=== PATIENT | female | born 1940 ===

== ENCOUNTER 2018-03-10 07:35 | Day surgery (SDC) | payer MEDICARE, BC ==
[~2018-03-10 07:35] MED LIST: Acetaminophen TAB* 325 MG PO PRN; Buffered Lidocaine 0.9% SYRIN* 5 ML/SYR SYRINGE INTRADERM ONE; Cyclopentolate 1% OPTH.SOL* 2 ML BTL ONE; Ketorolac 0.5% OPHTH (NF) 0.5 % 5 ML BTL ONE; Lidocaine 1% MPF* 2 ML VIAL ONE; Midazolam* 1 MG/ML 5 ML VIAL (5 MG) ONE; Neomycin/Polymy/Dex OPHTH.OIN* 3.5 GM ONE; Phenylephrine 2.5% OPTH.SOL* 2 ML BTL ONE; Povidone Iodine 5% OPTH* 30 ML BTL ONE; Tetracaine 0.5% OPTH.SOL 4 ML* 1 DROP BTL ONE; Tropicamide 1% OPTH.SOL* BTL ONE; acetaZOLAMIDE TAB* 250 MG ONE; fentaNYL* 50 MCG/ML 2 ML VIAL (100 MCG VIAL) ONE
[2018-03-10 08:56] VITALS: BP 140/61
--- NOTE | 2018-03-11 06:15 | OP ---
DATE OF OPERATION: 03/10/18 - [facility] DATE OF : 36 SURGEON: Alessandro Alves MD ANESTHESIA: Monitored anesthesia care. PRE-OP DIAGNOSIS: Cataract, right eye with astigmatism. POST-OP DIAGNOSIS: Cataract, right eye with astigmatism. OPERATIVE PROCEDURE: Extracapsular cataract extraction of the right eye with intraocular lens implant. IMPLANTS: SN6AT6 17.5 diopter lens at 83 degrees. COMPLICATIONS: None. DESCRIPTION OF PROCEDURE: The patient was given phenylephrine 2.5% and cyclopentolate 1% eye drops to the operative eye in the preoperative area. Corneal markings were placed at 0, 180, and 270 degrees with the patient in an upright position to facilitate toric lens placement. The patient was brought to the operating room where a time-out was taken to identify the correct patient , site and side of surgery. The patient's right eye was prepped and draped in the usual sterile fashion with 5% Betadine. A second time-out was taken to verify the correct patient, site and side of surgery and correct lens selection. A lid speculum was placed to the right eye. The 83-degree [place] was then marked on the corneal surface using a degree marker. A 1-mm paracentesis blade was used to make a clear corneal incision in the superotemporal position. Preservative-free 1% lidocaine was injected into the anterior chamber. DisCoVisc was then injected into the anterior chamber. A 2.75 mm keratome blade was used to make a triplanar incision at the infero- temporal position. A cystotome initiated a capsulorrhexis which was completed with Utrata forceps in a continuous and curvilinear manner. Hydrodissection of the lens was performed with BSS on a cannula. The lens could be spun in a capsular bag. The phacoemulsification handpiece was used with a divide-and- conquer technique to remove the nucleus in its entirety with 13.66 CDE. The I/ A handpiece then removed the residual cortical lens material. DisCoVisc was injected to inflate the capsular bag. The planned SN6AT6 17.5 diopter lens was injected into the capsular bag and positioned to the 83-degree [place]. The residual DisCoVisc was removed from the eye with the I/A handpiece. The lens was again confirmed to be at the 83-degree [place]. The corneal incisions were hydrated and no leaks occurred at physiologic pressure around 20 mmHg per palpation. The lid speculum was removed and drapes removed. Maxitrol ointment was placed to the surface of the operative eye. An adhesive patch and shield was then placed on the operative eye. The patient was taken to the postoperative area in stable condition. [id number]/[facility] #: [id number] MTDD
== END 2018-03-10 09:01 | disposition home or self-care (01) ==
LOC: OREAST 07:35
PROVIDERS: ATTEND Student in an Organized Health Care Education/Training Program
DX: H25.11 Age-related nuclear cataract, right eye (principal); H43.812 Vitreous degeneration, left eye; I10 Essential (primary) hypertension; E78.2 Mixed hyperlipidemia; Z87.891 Personal history of nicotine dependence; E78.00 Pure hypercholesterolemia, unspecified
CPT/HCPCS: A9270-GY; J2250; J3010; V2787

== ENCOUNTER 2018-03-17 06:23 | Day surgery (SDC) | payer MEDICARE, BC ==
[~2018-03-17 06:23] MED LIST changes: -Cyclopentolate 1% OPTH.SOL* 2 ML BTL ONE; -Ketorolac 0.5% OPHTH (NF) 0.5 % 5 ML BTL ONE; -Lidocaine 1% MPF* 2 ML VIAL ONE; -Midazolam* 1 MG/ML 5 ML VIAL (5 MG) ONE; -Neomycin/Polymy/Dex OPHTH.OIN* 3.5 GM ONE; -Phenylephrine 2.5% OPTH.SOL* 2 ML BTL ONE; -Povidone Iodine 5% OPTH* 30 ML BTL ONE; -Tetracaine 0.5% OPTH.SOL 4 ML* 1 DROP BTL ONE; -Tropicamide 1% OPTH.SOL* BTL ONE; -acetaZOLAMIDE TAB* 250 MG ONE; -fentaNYL* 50 MCG/ML 2 ML VIAL (100 MCG VIAL) ONE
[2018-03-17] MEDS ORDERED: Midazolam* 1 MG/ML 2 ML VIAL (2 MG) ONE (07:25)
[2018-03-17 08:07] VITALS: BP 147/68
--- NOTE | 2018-03-17 10:08 | OP ---
DATE OF OPERATION: 03/17/18 - [facility] DATE OF : 36 SURGEON: Alessandro Alves MD ANESTHESIA: Monitored anesthesia care. PRE-OP DIAGNOSIS: Cataract, left eye with astigmatism. POST-OP DIAGNOSIS: Cataract, left eye with astigmatism. OPERATIVE PROCEDURE: Extracapsular cataract extraction of the left eye with intraocular lens implant. IMPLANTS: SN6AT6 19.5 diopter lens at 89 degrees. COMPLICATIONS: None. DESCRIPTION OF PROCEDURE: The patient was given phenylephrine 2.5% and cyclopentolate 1% eye drops to the operative eye in the preoperative area. The patient was sat in the upright position and corneal markings were placed to facilitate toric lens placement. The patient was brought to the operating room where a time-out was taken to identify the correct patient, site and side of surgery. The patient's left eye was prepped and draped in the usual sterile fashion with 5% Betadine. A second time-out was taken to verify the correct patient, site and side of surgery and correct lens implant. A lid speculum was placed to the left eye. A Gonsales marker was used to make corneal markings at the 89 degree meridian. A 1 mm paracentesis blade was used to make a clear corneal incision in the inferotemporal position. Preservative-free 1% lidocaine was injected into the anterior chamber. DisCoVisc was then injected into the anterior chamber. A 2.75-mm keratome blade was used to make a triplanar incision at the superotemporal position. A cystotome initiated a capsulorrhexis, which was completed with Utrata forceps in a continuous and curvilinear manner. Hydrodissection of the lens was performed with BSS on a cannula. The lens could be spun in the capsular bag. The phacoemulsification handpiece was used with a divide- and-conquer technique to remove the nucleus in its entirety with 23.4 CDE. The I/A handpiece then removed the residual cortical lens material. DisCoVisc was injected to inflate the capsular bag. The planned SN6AT6 19.5 diopter lens was injected in the capsular bag and rotated to 89 degrees. The residual DisCoVisc was removed from the eye with the I/A handpiece and again the lens was confirmed to be at the 89-degree meridian. The corneal incisions were hydrated and no leaks occurred at physiologic pressure around 20 mmHg per palpation. The lid speculum was removed and drapes removed. Maxitrol ointment was placed to the surface of the operative eye. An adhesive patch and shield were then placed on the operative eye. The patient was taken to the postoperative area in stable condition. [id number]/[facility] #: [id number] MTDD
[2018-03-17] MEDS ORDERED: Cyclopentolate 1% OPTH.SOL* 2 ML BTL ONE (11:53)
[2018-03-17] MEDS ORDERED: Tropicamide 1% OPTH.SOL* BTL ONE (11:53)
[2018-03-17] MEDS ORDERED: Povidone Iodine 5% OPTH* 30 ML BTL ONE (11:53)
[2018-03-17] MEDS ORDERED: acetaZOLAMIDE TAB* 250 MG ONE (11:53)
[2018-03-17] MEDS ORDERED: Phenylephrine 2.5% OPTH.SOL* 2 ML BTL ONE (11:53)
[2018-03-17] MEDS ORDERED: Tetracaine 0.5% OPTH.SOL 4 ML* 1 DROP BTL ONE (11:53)
[2018-03-17] MEDS ORDERED: Lidocaine 1% MPF* 2 ML VIAL ONE (11:53)
[2018-03-17] MEDS ORDERED: Neomycin/Polymy/Dex OPHTH.OIN* 3.5 GM ONE (11:53)
[2018-03-17] MEDS ORDERED: Ketorolac 0.5% OPHTH (NF) 0.5 % 5 ML BTL ONE (11:53)
== END 2018-03-17 08:16 | disposition home or self-care (01) ==
LOC: OREAST 06:23
PROVIDERS: ATTEND Student in an Organized Health Care Education/Training Program
DX: H25.12 Age-related nuclear cataract, left eye (principal); H43.812 Vitreous degeneration, left eye; H52.222 Regular astigmatism, left eye; I10 Essential (primary) hypertension; E78.00 Pure hypercholesterolemia, unspecified; E78.2 Mixed hyperlipidemia; Z88.0 Allergy status to penicillin; Z88.1 Allergy status to other antibiotic agents; Z96.1 Presence of intraocular lens
CPT/HCPCS: A9270-GY; J2250; V2787